=== PATIENT | male | born 1980 | race Caucasian/White ===

== ENCOUNTER 2016-08-20 13:11 | Outpatient (CLI) | payer OTHER | END 2016-08-20 13:12 | disposition home or self-care (01) | DX: G47.33 Obstructive sleep apnea (adult) (pediatric) (principal) ==

== ENCOUNTER 2016-11-25 10:29 | Outpatient (CLI) | payer OTHER | END 2016-11-25 10:30 | disposition home or self-care (01) | LOC: SC 10:29 | PROVIDERS: ATTEND Nurse Practitioner Family | DX: G47.33 Obstructive sleep apnea (adult) (pediatric) (principal) | CPT/HCPCS: 99212; 99214 ==

== ENCOUNTER 2017-04-26 10:00 | Emergency (ER) | payer OTHER ==
--- NOTE | 2017-04-26 10:38 | ED Physician Documentation ---
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 He has had some loose stool but no diarrhea. He reports that he has had for similar episodes in the past 6 months. These episodes have lasted 1-2 days. He has not had any new medications or foods. He has had an increase in his dose of Lexapro about 1 week ago. He has been on that medicine for years. Review of Systems Constitutional: reports: Chills, Myalgias, Fatigue. denies: Fever Eyes: denies: Decreased vision Ears: denies: Ear pain Nose: denies: Rhinorrhea / runny nose, Congestion Throat: denies: Sore throat Cardiac: denies: Chest pain / pressure, Palpitations Respiratory: denies: Dyspnea, Cough GI: reports: Diarrhea. denies: Abdominal Pain, Nausea, Vomiting : denies: Dysuria, Frequency Skin: denies: Rash Musculoskeletal: denies: Neck pain, Back pain, Extremity pain, Joint pain Neurologic: reports: Generalized weakness. denies: Focal weakness, Numbness, Headache, Head injury, LOC PD PAST MEDICAL HISTORY - Past Medical History Psych: Depression, Anxiety Other Past Medical History: G6PD - Past Surgical History Past Surgical History: No - Present Medications Home Medications: Ambulatory Orders Medication Instructions Recorded Confirmed Bupropion HCl [Wellbutrin Xl] 1.5 tab PO DAILY 04/26/17 04/26/17 Escitalopram Oxalate [Lexapro] 1 tab PO DAILY 04/26/17 04/26/17 busPIRone [Buspar] 2 tab PO BID 04/26/17 04/26/17 - Allergies Allergies/Adverse Reactions: Allergies Allergy/AdvReac Type Severity Reaction Status Date / Time No Known Drug Allergies Allergy Verified 04/26/17 10:11 - Social History Does the pt smoke?: No Smoking Status: Never smoker Does the pt drink ETOH?: Yes Does the pt have substance abuse?: No - Immunizations Immunizations are current?: Yes - POLST Patient has POLST: No PD ED PE NORMAL - Vitals Vital signs reviewed: Yes (Hypertensive) - General General: No acute distress, Well developed/nourished, Other (The patient is shaking with chills.) - HEENT HEENT: Atraumatic, PERRL, EOMI, Ears normal, Moist mucous membranes, Pharynx benign, Dentition benign - Neck Neck: Supple, no meningeal sign, No bony TTP - Cardiac Cardiac: RRR, No murmur - Respiratory Respiratory: No respiratory distress, Clear bilaterally - Abdomen Abdomen: Soft, Non tender - Back Back: No CVA TTP, No spinal TTP - Derm Derm: Normal color, Warm and dry, No rash - Extremities Extremities: No deformity, No edema - Neuro Neuro: No motor deficit, No sensory deficit - Psych Psych: Normal mood, Normal affect Results - Vitals Vitals: Vital Signs - 24 hr 04/26/17 04/26/17 10:06 13:11 Temperature 37.5 C Heart Rate 91 78 Respiratory 15 15 Rate Blood Pressure 155/92 H 118/76 O2 Saturation 98 98 Oxygen O2 Source Room air - Labs Labs: Laboratory Tests 04/26/17 04/26/17 04/26/17 10:40 10:50 10:50 WBC 7.6 RBC 4.80 Hgb 14.1 Hct 41.7 L MCV 87.0 MCH 29.4 MCHC 33.8 RDW 13.7 Plt Count 206 MPV 8.2 Neut # 6.4 Lymph # 0.8 L [place] # 0.4 Eos # 0.0 Baso # 0.0 Absolute Nucleated RBC 0.00 Nucleated RBC % 0.0 Sodium 135 Potassium 3.8 Chloride 100 L Carbon Dioxide 25 Anion Gap 10.0 BUN 9 Creatinine 0.8 Estimated GFR (MDRD) 108 Glucose 109 H Calcium 9.3 Total Bilirubin 0.8 AST 27 ALT 33 Alkaline Phosphatase 69 Troponin I Total Protein 7.9 Albumin 4.6 Globulin 3.3 Albumin/Globulin Ratio 1.4 Lipase 17 L Urine Color LT. YELLOW Urine Clarity CLEAR Urine pH 6.5 Ur Specific [place] <=1.005 Urine Protein NEGATIVE Urine Glucose (UA) NEGATIVE Urine Ketones NEGATIVE Urine Occult Blood TRACE-INTA Urine Nitrite NEGATIVE Urine Bilirubin NEGATIVE Urine Urobilinogen 0.2 (NORMAL) Ur Leukocyte Esterase NEGATIVE Ur Microscopic Review NOT INDICATED Urine Culture Comments NOT INDICATED 04/26/17 10:50 WBC RBC Hgb Hct MCV MCH MCHC RDW Plt Count MPV Neut # Lymph # [place] # Eos # Baso # Absolute Nucleated RBC Nucleated RBC % Sodium Potassium Chloride Carbon Dioxide Anion Gap BUN Creatinine Estimated GFR (MDRD) Glucose Calcium Total Bilirubin AST ALT Alkaline Phosphatase Troponin I < 0.04 Total Protein Albumin Globulin Albumin/Globulin Ratio Lipase Urine Color Urine Clarity Urine pH Ur Specific [place] Urine Protein Urine Glucose (UA) Urine Ketones Urine Occult Blood Urine Nitrite Urine Bilirubin Urine Urobilinogen Ur Leukocyte Esterase Ur Microscopic Review Urine Culture Comments Procedures - IVC sono (time) 1025 Bedside IVC sono: IVC measures (cm) (1.24), IVC collapsed c insp (cm) (complete) , Dehydration (mild) PD MEDICAL DECISION MAKING - ED course Complexity details: reviewed old records, reviewed results, re-evaluated patient , considered differential, d/w patient ED course: 37-year-old male with a history of G6PD deficiency has developed acute chills and shakes. He has had these chills and shakes in episodes lasting 2 days. This is the fourth episode he has had in 6 months. On examination today I am not finding a reason for these shakes. His blood work is relatively benign. He does not have evidence of hemolysis. He does have some GI irritation associated with this but this does not appear central.He is mildly dehydrated and able to orally hydrate. I have asked the patient to follow-up with his primary. Departure - Departure Disposition: 01 Home, Self Care Clinical Impression: Shaking chills Condition: Stable Instructions: ED Viral Syndrome Follow-Up: ELENA RAMIRES [Primary Care Provider] - Comments: Today we did not discover an etiology for these episodes of shaking chills you are having. Follow-up with your primary care doctor for further investigation.
[2017-04-26 10:54] LABS: BASOPHILS % (AUTO) 0.3 %; EOSINOPHILS % (AUTO) 0.2 %; HCT - HEMATOCRIT 41.7 % (42.0-52.0); HGB - HEMOGLOBIN 14.1 g/dL (14.0-18.0); LYMPHOCYTES # (AUTO) 0.8 10^3/uL (1.5-3.5); LYMPHOCYTES % (AUTO) 10.6 %; MEAN CORPUSCULAR HEMOGLOBIN 29.4 pg (27.0-31.0); MEAN CORPUSCULAR HGB CONC 33.8 g/dL (32.0-36.0); MEAN PLATELET VOLUME 8.2 fL (7.4-11.4); MONOCYTES # (AUTO) 0.4 10^3/uL (0.0-1.0); MONOCYTES % (AUTO) 5.2 %; NEUTROPHILS # (AUTO) 6.4 10^3/uL (1.5-6.6); NEUTROPHILS % (AUTO) 83.7 %; RED CELL DISTRIBUTION WIDTH 13.7 % (12.0-15.0); UNCORRECTED WHITE BLOOD COUNT 7.6 x10^3/uL; WHITE BLOOD COUNT 7.6 x10^3/uL (4.8-10.8)
[2017-04-26 11:10] LABS: ALBUMIN/GLOBULIN RATIO 1.4 (1.0-2.2); BILIRUBIN,TOTAL 0.8 mg/dL (0.2-1.0); CALCIUM 9.3 mg/dL (8.5-10.3); CREATININE 0.8 mg/dL (0.6-1.2); POTASSIUM 3.8 mmol/L (3.5-5.0); TOTAL PROTEIN 7.9 g/dL (6.7-8.2)
[2017-04-26 11:13] LABS: BILIRUBIN,URINE NEGATIVE (NEGATIVE); PH,URINE 6.5 PH (5.0-7.5)
[2017-04-26 11:17] LABS: UA CHARGE (STRIP ONLY) YES; UR CULTURE IF IND NOT INDICATED
--- NOTE | 2017-04-26 11:29 | XRAY Preliminary Report ---
Exam: XR CHEST 2 VIEW PA/LAT IMPRESSION: Negative 2-view chest radiography. [facility] SITE ID: [id number]
--- NOTE | 2017-04-26 11:32 | XRAY Report ---
EXAM: CHEST RADIOGRAPHY EXAM DATE: 04/26/2017 11:06 AM. CLINICAL HISTORY: Shaking chills/weakness. COMPARISON: None. TECHNIQUE: 2 views. FINDINGS: Lungs/Pleura: No focal opacities evident. No pleural effusion. No pneumothorax. Normal volumes. Mediastinum: Heart and mediastinal contours are unremarkable. Other: Mild and irregular hyperdense thickening in the apical pleura bilaterally visualized, nonspeci fic chronic finding. IMPRESSION: Negative 2-view chest radiography. [facility] Referring Provider Line: [phone] SITE ID: [id number]
[2017-04-26] MEDS ORDERED: DEXAMETHASONE 10 MG/ML VIAL PO STA (14:18)
[2017-04-26] MEDS ORDERED: DEXAMETHASONE 10 MG/ML VIAL ONE (14:42)
[2017-04-26] MEDS ORDERED: CHERRY SYRUP 10 ML UDC PO ONE (14:42)
[2017-04-26 16:52] VITALS: BP 119/81
== END 2017-04-26 14:40 | disposition home or self-care (01) ==
LOC: ED 10:00
DX: R68.83 Chills (without fever) (principal); D55.0 Anemia due to glucose-6-phosphate dehydrogenase [G6PD] deficiency
CPT/HCPCS: 36415; 71020; 80053; 81003; 83690; 84484; 85025; 99283; A9270; 81001; 87086

== ENCOUNTER 2017-05-12 12:48 | Outpatient (CLI) | payer OTHER | END 2017-05-12 12:49 | disposition home or self-care (01) | LOC: DI 12:48 | PROVIDERS: ATTEND Physician Assistant | DX: R53.81 Other malaise (principal) | CPT/HCPCS: 93306 ==

== ENCOUNTER 2017-05-16 16:04 | Emergency (ER) | payer OTHER ==
[2017-05-16] MEDS ORDERED: SODIUM CHLORIDE 0.9% 2,000 ML IV ONE (16:52)
--- NOTE | 2017-05-16 17:06 | ED Physician Documentation ---
PD HPI URI - Stated complaint Stated Complaint: FLU SYMPTOMS - Chief complaint Chief Complaint: Resp - History obtained from History obtained from: Patient - History of Present Illness Timing - onset: How many days ago (4) Timing duration: Days (4) Timing details: Abrupt onset, Still present, Waxing and waning Associated symptoms: Chills, Nasal congestion, NVD (nausea with vomiting, with some diarrhea. No blood nor mucous in stool.). No: Fever Contributing factors: No: Sick contact, Travel, Immunocompromised Similar symptoms before: No diagnosis (has had several similar episodes about every 2 months for the past 6-8 months without speicific diagnosis. Has seen PMD with various blood tests. Had not been in malaria zones. Does not get measured fevers with these. Feels okay between episodes without weight loss, persistent cough, continued symptoms.) Review of Systems Constitutional: reports: Chills, Myalgias, Fatigue. denies: Fever Nose: reports: Rhinorrhea / runny nose Throat: reports: Sore throat Cardiac: denies: Chest pain / pressure Respiratory: reports: Cough. denies: Dyspnea GI: reports: Abdominal Pain (mild intermittent cramping, but has no appetite), Nausea, Vomiting, Diarrhea. denies: Abdominal Swelling : denies: Dysuria, Frequency Skin: denies: Rash, Lesions Neurologic: reports: Generalized weakness, Near syncope. denies: Focal weakness , Numbness, Confused, Altered mental status, Headache Psychiatric: reports: Anxiety. denies: Depressed, Insomnia Endocrine: denies: Polydypsia, Polyuria, Weight loss Immunocompromised: denies: Immunocompromised PD PAST MEDICAL HISTORY - Past Medical History Cardiovascular: None Respiratory: None Neuro: None Endocrine/Autoimmune: None Psych: Depression, Anxiety - Past Surgical History Past Surgical History: No - Present Medications Home Medications: Ambulatory Orders Medication Instructions Recorded Confirmed Dexamethasone [Decadron] 4 mg PO DAILY #5 tablet 05/16/17 Ondansetron HCl [Zofran] 4 mg PO Q6H PRN #20 tablet 05/16/17 clonazePAM [Clonazepam] 0.5 mg PO BID PRN #10 tablet 05/16/17 - Allergies Allergies/Adverse Reactions: Allergies Allergy/AdvReac Type Severity Reaction Status Date / Time No Known Drug Allergies Allergy Verified 05/16/17 16:36 - Living Situation Living Situation: reports: With spouse/s.o. Living Arrangement: reports: At home - Social History Does the pt smoke?: No Smoking Status: Never smoker Does the pt drink ETOH?: Yes Does the pt have substance abuse?: No - Family History Family history: reports: Non contributory - Immunizations Immunizations are current?: Yes - POLST Patient has POLST: No PD ED PE NORMAL - Vitals Vital signs reviewed: Yes - General General: Alert and oriented X 3, No acute distress, Well developed/nourished - HEENT HEENT: Ears normal, Pharynx benign. No: Moist mucous membranes - Neck Neck: Supple, no meningeal sign, No adenopathy - Cardiac Cardiac: RRR, No murmur - Respiratory Respiratory: Clear bilaterally - Abdomen Abdomen: Normal bowel sounds, Soft, Non tender, Non distended, No organomegaly - Male Male : Deferred - Rectal Rectal: Deferred - Back Back: No CVA TTP - Derm Derm: Warm and dry, No rash. No: Normal color (mild pallor) - Extremities Extremities: No tenderness to palpate, Normal ROM s pain, No edema, No calf tenderness / cord - Neuro Neuro: Alert and oriented X 3, event attendant 2-12 intact, No motor deficit, No sensory deficit, Normal speech - Psych Psych: Normal mood, Normal affect Results - Vitals Vitals: Oxygen O2 Source Room air - Labs Labs: Laboratory Tests 05/16/17 05/16/17 05/16/17 17:15 17:15 17:15 WBC 7.9 RBC 4.82 Hgb 14.2 Hct 41.6 L MCV 86.4 MCH 29.6 MCHC 34.2 RDW 13.5 Plt Count 223 MPV 8.2 Neut # 5.7 Lymph # 1.6 [place] # 0.6 Eos # 0.0 Baso # 0.0 Absolute Nucleated RBC 0.01 Nucleated RBC % 0.1 ESR 14 Sodium 135 Potassium 3.3 L Chloride 100 L Carbon Dioxide 26 Anion Gap 9.0 BUN 7 Creatinine 0.8 Estimated GFR (MDRD) 108 Glucose 98 Calcium 9.0 Total Bilirubin 0.7 AST 19 ALT 26 Alkaline Phosphatase 61 Total Protein 8.1 Albumin 4.6 Globulin 3.5 Albumin/Globulin Ratio 1.3 Lipase 18 L TSH 05/16/17 17:15 WBC RBC Hgb Hct MCV MCH MCHC RDW Plt Count MPV Neut # Lymph # [place] # Eos # Baso # Absolute Nucleated RBC Nucleated RBC % ESR Sodium Potassium Chloride Carbon Dioxide Anion Gap BUN Creatinine Estimated GFR (MDRD) Glucose Calcium Total Bilirubin AST ALT Alkaline Phosphatase Total Protein Albumin Globulin Albumin/Globulin Ratio Lipase TSH 2.48 PD MEDICAL DECISION MAKING - ED course Complexity details: considered differential (seems flu-like but says he has had similar episodes about every 2 months for the past 6-8 months. PMD has done various blood tests without Dx as yet. Has not been in malaria zones in the past , no regular symptoms between episodes. No persistent cough. No weight loss. ), d/w patient, d/w family (spouse) Departure - Departure Disposition: 01 Home, Self Care Clinical Impression: Flu-like symptoms, Shakiness Condition: Stable Record reviewed to determine appropriate education?: Yes Instructions: ED Viral Syndrome Follow-Up: ELENA RAMIRES [Primary Care Provider] - Prescriptions: clonazePAM [Clonazepam] 0.5 mg PO BID PRN #10 tablet PRN Reason: Spasms Dexamethasone [Decadron] 4 mg PO DAILY #5 tablet Ondansetron HCl [Zofran] 4 mg PO Q6H PRN #20 tablet PRN Reason: Nausea / Vomiting Comments: I don't know the cause of your symptoms. It sounds flu-like but not sure about the recurrent nature of it. Drink lots of fluids. Rest for 1-2 days. Decadron daily for 5 more days, thinking there may be an immune or inflammatory component. Zofran as needed for nausea/less appetite. Clonazepam twice daily if needed for tremor/shakiness. Follow up PCP over the next couple days if not improved. Forms: Activity restrictions Discharge Date/Time: 05/16/17 19:15
[2017-05-16] MEDS ORDERED: KETOROLAC 60 MG/2 ML VIAL IVP STA (17:27)
[2017-05-16] MEDS ORDERED: DEXAMETHASONE 10 MG/ML VIAL IVP STA (17:27)
[2017-05-16] MEDS ORDERED: ONDANSETRON 4 MG/2 ML VIAL IVP STA (17:27)
[2017-05-16 17:28] LABS: BASOPHILS % (AUTO) 0.4 %; EOSINOPHILS % (AUTO) 0.3 %; HCT - HEMATOCRIT 41.6 % (42.0-52.0); HGB - HEMOGLOBIN 14.2 g/dL (14.0-18.0); LYMPHOCYTES # (AUTO) 1.6 10^3/uL (1.5-3.5); LYMPHOCYTES % (AUTO) 19.8 %; MEAN CORPUSCULAR HEMOGLOBIN 29.6 pg (27.0-31.0); MEAN CORPUSCULAR HGB CONC 34.2 g/dL (32.0-36.0); MEAN CORPUSCULAR VOLUME 86.4 fL (80.0-94.0); MEAN PLATELET VOLUME 8.2 fL (7.4-11.4); MONOCYTES # (AUTO) 0.6 10^3/uL (0.0-1.0); NEUTROPHILS # (AUTO) 5.7 10^3/uL (1.5-6.6); NEUTROPHILS % (AUTO) 71.5 %; NUCLEATED RED BLOOD CELLS AUTO 0.1 /100WBC; RED BLOOD COUNT 4.82 10^6/uL (4.70-6.10); RED CELL DISTRIBUTION WIDTH 13.5 % (12.0-15.0); UNCORRECTED WHITE BLOOD COUNT 7.9 x10^3/uL; WHITE BLOOD COUNT 7.9 x10^3/uL (4.8-10.8)
[2017-05-16 17:38] LABS: ALBUMIN/GLOBULIN RATIO 1.3 (1.0-2.2); BILIRUBIN,TOTAL 0.7 mg/dL (0.2-1.0); CREATININE 0.8 mg/dL (0.6-1.2); POTASSIUM 3.3 mmol/L (3.5-5.0); TOTAL PROTEIN 8.1 g/dL (6.7-8.2)
[2017-05-16] MEDS ORDERED: SODIUM CHLORIDE 0.9% 1,000 ML IV ONE (17:38)
[2017-05-16] MEDS ORDERED: ONDANSETRON 4 MG/2 ML VIAL ONE (17:54)
[2017-05-16] MEDS ORDERED: KETOROLAC 30 MG/ML VIAL ONE (17:55)
[2017-05-16] MEDS ORDERED: DEXAMETHASONE 10 MG/ML VIAL ONE (17:55)
[2017-05-16] MEDS ORDERED: diazePAM INJ 5 MG/ML SYRINGE IVP STA (18:09)
[2017-05-16] MEDS ORDERED: ACETAMINOPHEN 1,000 MG/100 ML 100 ML IV STA (18:09)
[2017-05-16] MEDS ORDERED: ACETAMINOPHEN 1,000 MG/100 ML 100 ML IV ONE (18:19)
[2017-05-16] MEDS ORDERED: diazePAM INJ 5 MG/ML SYRINGE ONE (18:19)
[2017-05-16 19:09] VITALS: BP 131/78
== END 2017-05-16 19:15 | disposition home or self-care (01) ==
LOC: ED 16:04
DX: R09.81 Nasal congestion (principal); R11.2 Nausea with vomiting, unspecified; R19.7 Diarrhea, unspecified; R25.8 Other abnormal involuntary movements
CPT/HCPCS: 36415; 80053; 83690; 84443; 85025; 85651; 96374; 96375; 99283; J0131; 87040; 87275; 87276

== ENCOUNTER 2018-01-03 15:12 | Outpatient (CLI) | payer OTHER | END 2018-01-03 15:13 | disposition home or self-care (01) | LOC: SC 15:12 | PROVIDERS: ATTEND Nurse Practitioner Family | DX: G47.33 Obstructive sleep apnea (adult) (pediatric) (principal) | CPT/HCPCS: 99212; 99214 ==

== ENCOUNTER 2018-09-13 13:44 | Outpatient (CLI) | payer OTHER | END 2018-09-13 13:45 | disposition home or self-care (01) | LOC: SC 13:44 | PROVIDERS: ATTEND Nurse Practitioner Family | DX: G47.33 Obstructive sleep apnea (adult) (pediatric) (principal); R53.83 Other fatigue | CPT/HCPCS: 99212; 99215 ==

== ENCOUNTER 2018-10-20 12:43 | Outpatient (CLI) | payer OTHER | END 2018-10-20 12:44 | disposition home or self-care (01) | LOC: SC 12:43 | PROVIDERS: ATTEND Nurse Practitioner Family | DX: G47.33 Obstructive sleep apnea (adult) (pediatric) (principal) | CPT/HCPCS: 99212; 99214 ==